=== PATIENT | female | born 1965 | race Caucasian/White ===

== ENCOUNTER 2019-02-14 19:41 | Emergency (ER) | payer OTHER ==
[~2019-02-14] VITALS: Ht 160 cm; Wt 118.4 kg
[2019-02-14 20:21] VITALS: Ht 160 cm; Wt 118.4 kg
[2019-02-14 22:52] VITALS: BP 126/80
== END 2019-02-14 22:52 | disposition home or self-care (01) ==
LOC: ED 19:41
DX: S80.11XA Contusion of right lower leg, initial encounter (principal); X58.XXXA Exposure to other specified factors, initial encounter; Y93.89 Activity, other specified; Y92.89 Other specified places as the place of occurrence of the external cause; Y99.8 Other external cause status
CPT/HCPCS: Q0092